=== PATIENT | female | born 1990 | race Caucasian/White ===

== ENCOUNTER 2019-08-18 23:01 | Inpatient (IN) ==
[2019-08-18] MEDS: LACTATED RINGERS 1,000 ML IV SCH (23:40)
[2019-08-18] MEDS ORDERED: ONDANSETRON 4 MG/2 ML VIAL IV PRN (23:46)
[2019-08-18] MEDS ORDERED: AMPICILLIN INJ 2,000 MG in SODIUM CHLORIDE 0.9% 100 ML IV ONE (23:52)
[2019-08-19 00:01] LABS: Basophils % 0.3 % (0.0-0.8); Eosinophils # 0.1 10*3/uL (0.0-0.87); Eosinophils % 0.6 % (0.00-10.9); Hematocrit 33.4 VOL% (35.7-47.0); Hemoglobin 10.9 GM/DL (12.0-16.0); Immature Granulocytes % 0.3 %; Immature Granulocytes Absolute 0.04 #; Lymphocytes # 2.7 10*3/uL (1.4-4.0); Lymphocytes % 23.7 % (21.3-54.2); Mean Corpuscular HGB Conc 32.6 GM/DL (32-36); Mean Corpuscular Volume 78.8 FL (87-102); Mean Platelet Volume 11.4 FL (9.6-12.0); Monocytes % 6.4 % (1.7-12.7); Neutrophils % 68.7 % (38.7-73.9); Platelet Count 268 T/CUMM (130-400); Red Blood Count 4.24 MC/CUMM (3.8-5.5); Red Cell Distribution Width 13.2 % (9.3-17.3); White Blood Count 11.5 T/CUMM (4-12)
[2019-08-19 00:10] LABS: Apearance,Urine CLEAR (Clear); Bilirubin,Urine Negative (Negative); Blood, Urine Negative (Negative); Glucose,Urine (UA) Negative (Negative); Hyaline Casts,Urine 1 /LPF (0-3); Ketones,Urine 5 mg/dL (Negative); Mucus,Urine Occasional /LPF (Occasional); Nitrite,Urine Negative (Negative); Protein,Urine 30 MG/DL; RBC,Urine 2 /HPF (0-4); Squamous Epithelial Cell,Urine Occasional /HPF (0-10); Urine Color Straw (Yellow); Urine Specific Gravity 1.011 (1.001-1.035); Urine Urobilinogen < 2.0 EU/DL (0.2-1.0); WBC,Urine <1 /HPF (0-6)
[2019-08-19] MEDS ORDERED: INFLUENZA VIRUS VACCINE 0.5 ML SYRINGE IM ONE (00:12)
[2019-08-19] MEDS ORDERED: BUTORPHANOL 1 MG/ML VIAL IV PRN (00:14)
[2019-08-19] MEDS ORDERED: TRANEXAMIC ACID 1,000 MG/10 ML VIAL ONE (01:54)
[2019-08-19] MEDS ORDERED: OXYTOCIN/LR 20 UNIT/1,000 ML BAG IV ONE ×2 (01:54→07:48)
[2019-08-19] MEDS ORDERED: miSOPROStoL 200 MCG TABLET ONE (01:54)
[2019-08-19] MEDS ORDERED: METHYLERGONOVINE 0.2 MG/1 ML AMP ONE (01:55)
[2019-08-19] MEDS ORDERED: CARBOPROST TROMETHAMINE 250 MCG/ML AMP IM ONE (01:55)
[2019-08-19] MEDS ORDERED: LIDOCAINE 1% 50 ML VIAL ONE (01:57)
[2019-08-19] MEDS ORDERED: FAMOTIDINE 20 MG/2 ML VIAL IV ONE (02:18)
[2019-08-19] MEDS ORDERED: BUTORPHANOL 2 MG/ML VIAL IV ONE (02:18)
[2019-08-19] MEDS ORDERED: CITRIC ACID/SODIUM CITRATE 30 ML UDCUP PO ONE (02:18)
[2019-08-19] MEDS ORDERED: ePHEDrine 50 MG/ML AMP IV PRN (02:19)
[2019-08-19] MEDS: fentaNYL 2 MCG/ROPIV 0.2% EPID 100 ML EPIDURAL SCH ×2 (03:08→22:28)
[2019-08-19] MEDS: LACTATED RINGERS 1,000 ML IV SCH (03:29)
[2019-08-19] MEDS ORDERED: AMPICILLIN INJ 1,000 MG in SODIUM CHLORIDE 0.9% 100 ML IV SCH (04:00)
[2019-08-19] MEDS ORDERED: WITCH HAZEL PADS 100/JAR TOP PRN (07:48)
[2019-08-19] MEDS ORDERED: DIPH/TET/ACEL PERT BOOSTER VACCINE 0.5 ML VIAL IM ONE (07:48)
[2019-08-19] MEDS ORDERED: ACETAMINOPHEN 325 MG TABLET PO PRN (07:48)
[2019-08-19] MEDS ORDERED: MEASLES/MUMPS/RUBELLA VACCINE 0.5 ML VIAL SUBCUT ONE (07:48)
[2019-08-19] MEDS ORDERED: LANOLIN 50% CREAM 0.3 OZ TUBE TOP PRN (07:48)
[2019-08-19] MEDS ORDERED: BISACODYL 10 MG SUPP RECTAL PRN (07:48)
[2019-08-19] MEDS ORDERED: BENZOCAINE 20%/MENTHOL 0.5% SPRAY 56 GM CAN TOP PRN (07:48)
[2019-08-19] MEDS ORDERED: ONDANSETRON 4 MG/2 ML VIAL IV PRN (07:48)
[2019-08-19] MEDS ORDERED: RHO(D) IMMUNE GLOBULIN 300 MCG SYRINGE IM ONE (07:48)
[2019-08-19] MEDS ORDERED: HYDROCORTISONE 2.5% RECTAL CREAM 30 GM TUBE TOP PRN (07:48)
[2019-08-19] MEDS ORDERED: LIDOCAINE 2% 5 ML VIAL ONE (07:50)
[2019-08-19] MEDS ORDERED: fentaNYL 100 MCG/2 ML VIAL ONE (07:50)
[2019-08-19] MEDS ORDERED: MIDAZOLAM 2 MG/2 ML VIAL ONE (07:50)
[2019-08-19] MEDS ORDERED: propofoL 200 MG/20 ML VIAL IV ONE (07:50)
[2019-08-19] MEDS ORDERED: LIDOCAINE MPF 2% /EPI 20 ML VIAL ONE (07:51)
[2019-08-19] MEDS: IBUPROFEN 800 MG TABLET PO PRN ×2 (10:18→21:00)
[2019-08-19] MEDS: oxyCODONE/ACETAMINOPHEN 5-325 MG TABLET PO PRN (10:19)
[2019-08-19] MEDS: DOCUSATE SODIUM 100 MG CAPSULE PO SCH ×2 (12:05→21:01)
[2019-08-20] MEDS: oxyCODONE/ACETAMINOPHEN 5-325 MG TABLET PO PRN ×3 (01:10→17:43)
[2019-08-20 03:30] LABS: Barbiturates Screen,Urine Negative (Negative); Benzodiazepines Screen,Urine Negative (Negative); Cannabinoid Screen,Urine Negative (Negative); Opiate Screen,Urine Negative (Negative); Phencyclidine Screen,Urine Negative (Negative)
[2019-08-20 04:41] LABS: Basophils % 0.2 % (0.0-0.8); Eosinophils % 0.2 % (0.00-10.9); Hematocrit 26.2 VOL% (35.7-47.0); Hemoglobin 8.3 GM/DL (12.0-16.0); Immature Granulocytes % 0.7 %; Immature Granulocytes Absolute 0.08 #; Lymphocytes # 2.9 10*3/uL (1.4-4.0); Lymphocytes % 23.7 % (21.3-54.2); Mean Corpuscular HGB Conc 31.7 GM/DL (32-36); Mean Corpuscular Volume 80.9 FL (87-102); Mean Platelet Volume 10.9 FL (9.6-12.0); Monocytes % 6.7 % (1.7-12.7); Neutrophils % 68.5 % (38.7-73.9); Platelet Count 161 T/CUMM (130-400); Red Blood Count 3.24 MC/CUMM (3.8-5.5); Red Cell Distribution Width 13.4 % (9.3-17.3); White Blood Count 12.2 T/CUMM (4-12)
[2019-08-20] MEDS: IBUPROFEN 800 MG TABLET PO PRN ×2 (07:37→17:43)
[2019-08-20] MEDS: DOCUSATE SODIUM 100 MG CAPSULE PO SCH ×2 (09:08→20:37)
[2019-08-21] MEDS: IBUPROFEN 800 MG TABLET PO PRN (00:03)
[2019-08-21] MEDS: oxyCODONE/ACETAMINOPHEN 5-325 MG TABLET PO PRN ×2 (00:03→09:18)
[2019-08-21] MEDS ORDERED: FERROUS SULFATE 325 MG TABLET PO SCH (09:00)
[2019-08-21] MEDS: DOCUSATE SODIUM 100 MG CAPSULE PO SCH (09:18)
[2019-08-21 09:57] VITALS: BP 137/78
== END 2019-08-21 13:00 | disposition home or self-care (01) | DRG 768 ==
LOC: N.LDOUT 23:01 → N.LD 23:03 → N.OB 08-19 08:19
PROVIDERS: ADMIT Obstetrics & Gynecology; ATTEND Obstetrics & Gynecology

== ENCOUNTER 2020-10-09 14:11 | Inpatient (IN) ==
[2020-10-09] MEDS ORDERED: BUTORPHANOL 2 MG/ML VIAL IV PRN (14:27)
[2020-10-09] MEDS ORDERED: ONDANSETRON 4 MG/2 ML VIAL IV PRN (14:27)
[2020-10-09] MEDS ORDERED: MEPERIDINE 50 MG/1 ML VIAL IV PRN (14:27)
[2020-10-09] MEDS ORDERED: NALOXONE 0.4 MG/ML VIAL IV PRN (14:29)
[2020-10-09] MEDS ORDERED: diphenhydrAMINE 50 MG/1 ML VIAL IV PRN ×2 (14:29)
[2020-10-09] MEDS ORDERED: LACTATED RINGERS 1,000 ML IV ONE (14:29)
[2020-10-09] MEDS ORDERED: ONDANSETRON 4 MG/2 ML VIAL IV ONE (14:29)
[2020-10-09] MEDS ORDERED: FAMOTIDINE 20 MG/2 ML VIAL IV ONE (14:29)
[2020-10-09] MEDS ORDERED: PROMETHAZINE 25 MG/1 ML VIAL IM ONE (14:29)
[2020-10-09] MEDS ORDERED: AMPICILLIN INJ 2,000 MG in SODIUM CHLORIDE 0.9% 100 ML IV ONE (14:29)
[2020-10-09] MEDS ORDERED: ePHEDrine 50 MG/ML VIAL IV PRN (14:29)
[2020-10-09] MEDS ORDERED: hydrOXYzine HCL 25 MG/1 ML VIAL IM PRN (14:29)
[2020-10-09] MEDS ORDERED: CITRIC ACID/SODIUM CITRATE 30 ML UDCUP PO ONE (14:29)
[2020-10-09] MEDS ORDERED: fentaNYL 2 MCG/ROPIV 0.2% EPID 100 ML EPIDURAL SCH (14:30)
[2020-10-09] MEDS ORDERED: LACTATED RINGERS 1,000 ML IV SCH (14:30)
[2020-10-09] MEDS ORDERED: OXYTOCIN/LR 20 UNIT/1,000 ML BAG IV SCH (14:30)
[2020-10-09] MEDS ORDERED: ceFAZolin 2,000 MG in PREMIX 1 EACH IV ONE (14:35)
[2020-10-09 14:42] LABS: Basophils % 0.3 % (0.0-0.8); Eosinophils % 0.2 % (0.00-10.9); Hemoglobin 9.6 GM/DL (12.0-16.0); Immature Granulocytes % 0.7 %; Immature Granulocytes Absolute 0.11 #; Lymphocytes # 1.5 10*3/uL (1.4-4.0); Mean Corpuscular Volume 72.9 FL (87-102); Mean Platelet Volume 9.5 FL (9.6-12.0); Monocytes % 4.1 % (1.7-12.7); NRBC # 0.04 10*3/uL; Neutrophils % 84.7 % (38.7-73.9); Platelet Count 245 T/CUMM (130-400); Red Blood Count 4.25 MC/CUMM (3.8-5.5); Red Cell Distribution Width 14.8 % (9.3-17.3); White Blood Count 14.9 T/CUMM (4-12)
[2020-10-09] MEDS ORDERED: OXYTOCIN/LR 20 UNIT/1,000 ML BAG IV ONE (15:02)
[2020-10-09] MEDS ORDERED: METHYLERGONOVINE 0.2 MG/1 ML AMP ONE (15:02)
[2020-10-09] MEDS ORDERED: TRANEXAMIC ACID 1,000 MG/10 ML VIAL ONE (15:02)
[2020-10-09] MEDS ORDERED: miSOPROStoL 200 MCG TABLET ONE (15:02)
[2020-10-09] MEDS ORDERED: CARBOPROST TROMETHAMINE 250 MCG/ML AMP IM ONE (15:03)
[2020-10-09 15:04] LABS: Albumin 2.7 G/DL (3.4-5.0); Bilirubin,Total 0.6 MG/DL (0.2-1.0); Calcium 8.7 MG/DL (8.5-10.1); Osmolality,Calculated 266.1 MOS/KG (273-304); Total Protein 6.9 G/DL (6.4-8.3)
[2020-10-09 15:35] LABS: Cord Arterial Blood HCO3 21.2 MMOL/L
[2020-10-09 15:36] LABS: Cord Venous Blood HCO3 23.2 MMOL/L; Cord Venous Blood PCO2 42.7 MMHG
[2020-10-09 15:37] LABS: Cord Venous Blood PO2 18.8 MMHG
[2020-10-09 15:43] LABS: Cord Arterial Blood HCO3 20.3 MMOL/L
[2020-10-09 15:46] LABS: Cord Venous Blood HCO3 21.2 MMOL/L; Cord Venous Blood PCO2 47.9 MMHG
[2020-10-09 15:47] LABS: Cord Venous Blood PO2 15.3
[2020-10-09] MEDS: oxyCODONE/ACETAMINOPHEN 5-325 MG TABLET PO PRN (19:44)
[2020-10-09] MEDS: ceFAZolin 1,000 MG in SYRINGE 1 EACH IV SCH (23:20)
[2020-10-10 06:04] LABS: Basophils % 0.2 % (0.0-0.8); Eosinophils % 0.2 % (0.00-10.9); Hematocrit 22.5 VOL% (35.7-47.0); Immature Granulocytes % 0.5 %; Immature Granulocytes Absolute 0.07 #; Lymphocytes # 1.9 10*3/uL (1.4-4.0); Lymphocytes % 14.8 % (21.3-54.2); Mean Corpuscular Volume 70.5 FL (87-102); Monocytes % 7.8 % (1.7-12.7); NRBC # 0.11 10*3/uL; Neutrophils % 76.5 % (38.7-73.9); Red Cell Distribution Width 14.7 % (9.3-17.3); White Blood Count 12.8 T/CUMM (4-12)
[2020-10-10 06:07] LABS: Hemoglobin 7.2 GM/DL (12.0-16.0); Platelet Count 181 T/CUMM (130-400); Red Blood Count 3.19 MC/CUMM (3.8-5.5)
[2020-10-10] MEDS: ceFAZolin 1,000 MG in SYRINGE 1 EACH IV SCH (06:52)
[2020-10-10] MEDS: IBUPROFEN 800 MG TABLET PO PRN (07:42)
[2020-10-10] MEDS: DOCUSATE SODIUM 100 MG CAPSULE PO SCH ×2 (07:44→20:50)
[2020-10-10] MEDS: FERROUS SULFATE 325 MG TABLET PO SCH ×2 (07:44→20:50)
[2020-10-10] MEDS: oxyCODONE/ACETAMINOPHEN 5-325 MG TABLET PO PRN ×3 (07:45→23:45)
[2020-10-10] MEDS: ENOXAPARIN 40 MG/0.4 ML SYRINGE SUBCUT SCH (15:18)
[2020-10-10] MEDS ORDERED: MAGNESIUM HYDROXIDE SUSP 30 ML UDCUP PO PRN (16:51)
[2020-10-11] MEDS ORDERED: BISACODYL 10 MG SUPP RECTAL PRN (07:12)
[2020-10-11] MEDS: DOCUSATE SODIUM 100 MG CAPSULE PO SCH ×3 (07:16→21:22)
[2020-10-11] MEDS: FERROUS SULFATE 325 MG TABLET PO SCH ×3 (07:16→21:22)
[2020-10-11] MEDS: oxyCODONE/ACETAMINOPHEN 5-325 MG TABLET PO PRN ×3 (07:16→21:35)
[2020-10-11] MEDS: SIMETHICONE CHEW 80 MG TABLET PO PRN ×3 (07:16→19:34)
[2020-10-11] MEDS: IBUPROFEN 800 MG TABLET PO PRN ×3 (07:16→21:35)
[2020-10-11] MEDS: ENOXAPARIN 40 MG/0.4 ML SYRINGE SUBCUT SCH (15:17)
[2020-10-12] MEDS: IBUPROFEN 800 MG TABLET PO PRN ×2 (04:15→10:53)
[2020-10-12] MEDS: oxyCODONE/ACETAMINOPHEN 5-325 MG TABLET PO PRN ×2 (04:15→10:54)
[2020-10-12] MEDS: SIMETHICONE CHEW 80 MG TABLET PO PRN ×2 (04:36→08:36)
[2020-10-12] MEDS: DOCUSATE SODIUM 100 MG CAPSULE PO SCH (08:37)
[2020-10-12] MEDS: FERROUS SULFATE 325 MG TABLET PO SCH (08:37)
[2020-10-12 16:05] VITALS: BP 117/63
== END 2020-10-12 15:30 | disposition home or self-care (01) | DRG 788 ==
LOC: N.LDOUT 14:11 → N.LD 14:13 → N.OB 18:15
PROVIDERS: ADMIT Obstetrics & Gynecology; ATTEND Obstetrics & Gynecology
PROC: LDCSECT (ICD-10-PCS; 2020-10-09 15:00)